=== PATIENT | female | born 1985 | race African-American/Black ===

== ENCOUNTER 2017-07-31 19:26 | Emergency (ER) | payer MEDICAID ==
[~2017-07-31] VITALS: Ht 172.7 cm; Wt 67.6 kg
[~2017-07-31 19:26] MED LIST: PREN-96 OR
[2017-07-31 20:48] LABS: Basophils # (auto) 0 uL; Basophils % (auto) 0.4 % (0.0-2.0); Eosinophils # (auto) 0.1 uL; Eosinophils % (auto) 0.6 % (0.0-7.0); Hematocrit 37.4 % (36.0-46.0); Hemoglobin 12.6 g/dL (12.2-16.2); Lymphocytes # (auto) 2.8 uL; Lymphocytes % (auto) 25.8 % (10.0-50.0); Mean Corpuscular Hgb Conc. 33.7 g/dL (32.0-36.0); Mean Platelet Volume 8.5 fL (6.9-10.8); Monocytes # (auto) 0.4 uL; Monocytes % (auto) 3.5 % (0.0-12.0); Neutrophils # (auto) 7.7 uL; Neutrophils % (auto) 69.7 % (37.0-80.0); Nucleated Red Blood Cells % 0.1 %; Platelet Count (auto) 261 10^3/uL (140-450); Red Cell Distribution Width 13.2 % (11.8-14.3)
[2017-07-31 21:20] LABS: Albumin 4.4 g/dL (3.4-5.0); BUN/Creatinine Ratio 8.1; Bilirubin, Total 1.6 mg/dL (0.2-1.0); Calcium 9.2 mg/dL (8.5-10.1); Potassium 3.2 mmol/L (3.5-5.1)
[2017-07-31 21:40] LABS: Urine Bilirubin Negative (Negative); Urine Blood Negative /uL (Negative); Urine Color Yellow (Yellow); Urine Glucose Normal (Normal); Urine Ketone Negative (Negative); Urine Mucus FEW (None Seen); Urine Nitrite Negative (Negative); Urine RBC <1 /hpf (0 - 4); Urine Squamous Epithelial Cell FEW /hpf (<5); Urine Urobilinogen Normal (Negative); Urine pH 5.5 (5.0-8.0)
[2017-08-01 07:30] VITALS: BP 132/88
== END 2017-08-01 07:52 | disposition home or self-care (01) ==
LOC: ER 19:33
DX: N39.0 Urinary tract infection, site not specified (principal); Z88.2 Allergy status to sulfonamides
CPT/HCPCS: 36415; 80053; 81001; 85025

== ENCOUNTER 2017-08-15 10:43 | Emergency (ER) | payer MEDICAID ==
[~2017-08-15] VITALS: Ht 172.7 cm; Wt 68.0 kg
[2017-08-15 11:58] LABS: BUN/Creatinine Ratio 12.4; Bilirubin, Total 1.1 mg/dL (0.2-1.0); Calcium 9.2 mg/dL (8.5-10.1); Potassium 3.6 mmol/L (3.5-5.1); Total Protein 8.5 g/dL (6.4-8.2)
[2017-08-15 11:59] LABS: Urine Blood Negative /uL (Negative); Urine Color Yellow (Yellow); Urine Glucose Normal (Normal); Urine Ketone Negative (Negative); Urine Mucus FEW (None Seen); Urine Nitrite Negative (Negative); Urine RBC 1 /hpf (0 - 4); Urine Squamous Epithelial Cell MOD /hpf (<5)
[2017-08-15 12:14] LABS: Urine Bilirubin Negative (Negative)
[2017-08-15 12:30] VITALS: BP 139/71
[2017-08-15] MEDS ORDERED: PANTOPRAZOLE 40 MG/10 ML VIAL IV STA (12:37)
[2017-08-15] MEDS ORDERED: SODIUM CHLORIDE 0.9% 1,000 ML IVB ONE (12:37)
[2017-08-15] MEDS ORDERED: ONDANSETRON HCL 4 MG/2 ML VIAL IV ONE (12:45)
[2017-08-15] MEDS ORDERED: MORPHINE SULF INJ 2 MG/ML SYRINGE 1ML IV PRN (12:45)
[2017-08-15 13:48] LABS: Basophils # (auto) 0 uL; Basophils % (auto) 0.5 % (0.0-2.0); Eosinophils # (auto) 0.1 uL; Eosinophils % (auto) 0.6 % (0.0-7.0); Hematocrit 33.7 % (36.0-46.0); Hemoglobin 11.6 g/dL (12.2-16.2); Lymphocytes # (auto) 2.1 uL; Lymphocytes % (auto) 22.8 % (10.0-50.0); Mean Corpuscular Hgb Conc. 34.4 g/dL (32.0-36.0); Mean Corpuscular Volume 90.3 fL (80.0-100.0); Mean Platelet Volume 8.6 fL (6.9-10.8); Monocytes # (auto) 0.4 uL; Monocytes % (auto) 4.7 % (0.0-12.0); Neutrophils # (auto) 6.5 uL; Neutrophils % (auto) 71.4 % (37.0-80.0); Nucleated Red Blood Cells % 0.1 %; Platelet Count (auto) 352 10^3/uL (140-450); Red Cell Distribution Width 12.6 % (11.8-14.3); White Blood Cell 9.1 10^3/uL (4.4-10.8)
== END 2017-08-15 14:55 | disposition home or self-care (01) ==
LOC: ER 10:43
DX: K29.70 Gastritis, unspecified, without bleeding (principal); N39.0 Urinary tract infection, site not specified; Z88.1 Allergy status to other antibiotic agents; Z87.442 Personal history of urinary calculi
CPT/HCPCS: 36415; 80053; 80307; 81001; 83690; 84702; 85025; 94761; 96361; 96374; 96375; 99284; C9113; J2270; J2405; J7030